=== PATIENT | male | born 1945 | race Caucasian/White ===

== ENCOUNTER → 2021-11-04 11:54 | Outpatient (CLI) | payer MEDICARE, BC, SELFPAY ==
--- NOTE | 2021-11-04 12:07 | XR_ITS ---
FINAL REPORT CLINICAL HISTORY: COUGH x 4 weeks. nonsmoker FINDINGS: TWO-VIEW CHEST The heart size is normal. The mediastinum is normal. There is mild left base atelectasis or scar. There is no pneumothorax. There are moderate degenerative changes of the thoracic spine. IMPRESSION: Left base atelectasis or scar. Reviewed, Interpreted and Dictated by Guille Bruce III, MD Transcribed by Erin Lu Authenticated and [facility]
[2021-11-04 13:36] LABS: Alanine Aminotransferase 35 U/L (12-78); Albumin Level 3.9 g/dl (3.5-5.0); Albumin/Globulin Ratio 1.4 (1.1-1.8); Alkaline Phosphatase 85 U/L (38-126); Aspartate Amino Transferase 42 U/L (17-59); Bilirubin,Total 0.6 mg/dl (0.2-1.3); Blood Urea Nitrogen 25 mg/dl (9-20); Calcium 9.3 mg/dl (8.4-10.2); Carbon Dioxide 30 mmol/L (22.0-30.0); Chloride 103 mmol/L (98-107); Estimated Glomerular Filt Rate 65 ml/min (>60); GFR (African American) 79 ML/MIN (>60); Globulin 2.7 g/dL (1.3-3.2); Glucose 102 mg/dl (74-100); Magnesium 1.9 mg/dl (1.6-2.3); Phosphorous 3.9 mg/dl (2.5-4.5); Sodium 138 mmol/L (136-145); Total Protein,Serum 6.6 g/dl (6.3-8.2)
[2021-11-04 13:43] LABS: NT Pro Brain Natriuretic Pep. 195 pg/mL (0-125)
[2021-11-04 14:05] LABS: Thyroid Stimulating Hormone 0.85 uIU/mL (0.465-4.68)
== END ==
PROVIDERS: Visit Provider Nurse Practitioner
DX: M79.10 Myalgia, unspecified site (principal); R05.9 Cough, unspecified
CPT/HCPCS: 36415; 71046; 80053; 83735; 83880; 84100; 84443

== ENCOUNTER 2022-03-04 15:52 | Emergency (ER) | payer MEDICARE, BC, SELFPAY ==
[2022-03-04] VITALS (12 sets, daily range): BP systolic 115–199; BP diastolic 63–109; PULSE 63–79; RESP 18–19; TEMP 36.6; O2SAT 95–100; BMI 33.2
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
--- NOTE | 2022-03-04 16:00 | PC.NURSE ---
states that he does not want any labs at this time, pt is on blood thinner, MD aware. examined pt and removed c-collar.
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
--- NOTE | 2022-03-04 16:13 | PC.NURSE ---
pt going to radiology via w/c
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
--- NOTE | 2022-03-04 17:04 | PC.NURSE ---
Pt to Rad for Head CT
--- NOTE | 2022-03-04 17:13 | PC.NURSE ---
pt back from ct
--- NOTE | 2022-03-04 17:41 | ECG_ITS ---
APPROVED REPORT Exam: Resting ECG HR:67 bpm ECG Measurements Heart Rate 67 AXES SD 138 P -6 QRSd 86 QRS -12 QT 406 T -21 QTc 421 Conclusion SINUS RHYTHM POSSIBLE ANTERIOR MYOCARDIAL INFARCTION , PROBABLY OLD [30 ms Q WAVE IN V3/V4, OR R < 0.2 mV IN V4] BORDERLINE ECG UNCONFIRMED REPORT Electronically signed by : Danial Campa MD 03/07/2022 17:44:39
--- NOTE | 2022-03-04 17:47 | PC.NURSE ---
Addendum entered by Seema Godinez RN 03/04/22 17:49: EKG taken at this time Original Note: pt requested to sit in the chair after he returned from x-ray, at that time pt stated that he felt find and denied any dizziness. Called into the room at this time for pt feeling dizzy and nauseated, other staff and I assisted pt back to bed with side rails up, pt pale and clammy at this time, IV obtained at this time, labs drawn, aware.
--- NOTE | 2022-03-04 18:15 | PC.NURSE ---
contacting [facility] at this time
--- NOTE | 2022-03-04 18:26 | PC.NURSE ---
KIMBERLEE on phone with [facility]
--- NOTE | 2022-03-04 18:28 | PC.NURSE ---
DR. NELSON SPEAKING WITH DR. SIERRA AT , HAS ACCEPTED PT
--- NOTE | 2022-03-04 18:29 | PC.NURSE ---
MD SPEAKING WITH PT AND FAMILY. UPDATED ON POC
--- NOTE | 2022-03-04 18:34 | PC.NURSE ---
[facility] NOTIFIED FOR TRANSFER
--- NOTE | 2022-03-04 18:42 | PC.NURSE ---
report given to Bernie FUENTES at ER
[2022-03-04 18:56] LABS: Anion Gap 11.8 mEq/L (5-15); Blood Urea Nitrogen 30 mg/dl (9-20); Calcium 8.6 mg/dl (8.4-10.2); Carbon Dioxide 29 mmol/L (22.0-30.0); Chloride 103 mmol/L (98-107); Creatinine Clearance Estimated 84 mL/min (50-200); Estimated Glomerular Filt Rate 65 ml/min (>60); GFR (African American) 79 ML/MIN (>60); Glucose 144 mg/dl (74-100); Potassium 4.8 mmoL/L (3.5-5.1); Sodium 139 mmol/L (136-145)
[2022-03-04 19:01] LABS: Basophils # 0.1 K/mm3 (0-0.2); Basophils % 0.4 % (0.1-2.0); Eosinophils % 0.1 % (0.1-12.0); Hematocrit 40.9 % (42.0-52.0); Hemoglobin 13.1 g/dL (14.1-18.0); Lymphocytes # 1.2 K/mm3 (0.7-4.5); Lymphocytes % 6.2 % (10-50); Mean Corpuscular Hemoglobin 29.6 pg (27.0-31.2); Mean Corpuscular Volume 92.4 fl (80-94); Mean Platelet Volume 8.3 fl (7.4-10.4); Monocytes # 0.8 K/mm3 (0.1-1.0); Monocytes % 3.9 % (1.7-9.3); Neutrophils # 17.7 K/mm3 (1.8-7.8); Neutrophils % 89.4 % (37.0-80.0); Platelet Count 290 K/mm3 (142-424); Red Blood Count 4.43 M/mm3 (4.60-6.20); Red Cell Distribution Width 14.1 % (11.5-17.5); White Blood Count 19.8 K/mm3 (4.8-10.8)
[2022-03-04 19:06] LABS: MANUAL DIFFERENTIAL MANUAL DIFFERENTIAL (MANUAL DIFF)
[2022-03-04 19:28] LABS: Lymphocytes % 11 % (10-50); Monocytes % 2 % (2-9); Neutrophils % 87 % (42-76); Total Cells Counted 100
[2022-03-04 19:29] LABS: Ovalocytes 1+; Platelet Estimate Normal
[2022-03-04 19:38] LABS: Activated Partial Thrombo Time 20.1 seconds (22.8-30.6); INR 0.98 (0.9-1.1); Prothrombin Time 10.6 seconds (10.1-12.5)
== END 2022-03-04 19:24 | disposition critical access hospital (66) ==
PROVIDERS: Emergency Provider Emergency Medicine
DX: S42.032A Displaced fracture of lateral end of left clavicle, initial encounter for closed fracture (principal); S20.229A Contusion of unspecified back wall of thorax, initial encounter; M25.512 Pain in left shoulder; M54.50 Low back pain, unspecified; R42 Dizziness and giddiness; I10 Essential (primary) hypertension; K21.9 Gastro-esophageal reflux disease without esophagitis; E78.5 Hyperlipidemia, unspecified; Z79.02 Long term (current) use of antithrombotics/antiplatelets; Z79.82 Long term (current) use of aspirin; Z79.899 Other long term (current) drug therapy; Z23 Encounter for immunization; Z82.49 Family history of ischemic heart disease and other diseases of the circulatory system; V86.55XA Driver of 3- or 4- wheeled all-terrain vehicle (ATV) injured in nontraffic accident, initial encounter
CPT/HCPCS: 70450; 72100; 73030; 80048; 85007; 85025; 85610; 85730; 90471; 90715; 93005; 99285